=== PATIENT | male | born 1995 | race Two or more races ===

== ENCOUNTER 2017-05-19 20:33 | Inpatient (IN) | payer OTHER ==
[~2017-05-19] VITALS: Ht 180.3 cm; Wt 102.5 kg
[~2017-05-19 20:33] MED LIST: ALBUTEROL17 G1 IH; BENADRYL25 MG PO; PEPCID20 MG PO; PREDNISONE20 MG PO
[2017-05-19 21:00] LABS: HEMATOCRIT 43.2 % (38.0-50.0); MCH 29.9 PG (29.0-34.0); MCHC 34.5 G/DL (30.0-36.0); MCV 86.7 FL (86-99); MEAN PLAT.VOLUME 9.8 uM^3 (9.0-12.4); PLATELET COUNT 190 K/uL (156-360); RBC DIS.WIDTH-CV 12.3 % (11.8-14.6); RBC DIS.WIDTH-SD 39.1 % (39-53); RED BLOOD COUNT 4.98 M/uL (4.00-5.50); WHITE BLOOD COUNT 17.3 K/uL (4.1-10.2)
[2017-05-19 21:09] LABS: CHLORIDE 103 mEq/L (99-109); POTASSIUM 3.9 mEq/L (3.7-5.4); SODIUM 135 mEq/L (136-147)
[2017-05-19 21:10] LABS: GLUCOSE 129 mg/dL (70-99)
[2017-05-19 21:12] LABS: ANION GAP 8 MEQ/L (2-14)
[2017-05-19 21:14] LABS: GFR ESTIMATE (CALCULATED) > 59 mL/min/
[2017-05-19 21:15] LABS: UREA NITROGEN (BUN) 16 mg/dL (9-23)
[2017-05-19 21:54] LABS: ABS NEUTROPHIL COUNT 7.9; ATYPICAL LYMPHOCYTE 39.7 %; BAND NEUTROPHILS 3.4 % (0-8.0); BASOPHILS 0.9 %; EOSINOPHIL ABS CT 0; INSTRUMENT ABS NEUTROPHIL CT 7.4 K/uL; LYMPHOCYTES 10.3 % (15.0-45.0); SEG.NEUTROPHILS 42.2 % (46.0-76.0); SMUDGE CELLS 13.8
[2017-05-19] MEDS ORDERED: VENTOLIN HFA18 GM IH (22:23)
[2017-05-19 22:55] LABS: ADD MIUA? YES; BILIRUBIN NEGATIVE; BLOOD MODERATE; COLOR AMBER ((YELLOW)); GLUCOSE (STRIP) NEGATIVE; KETONES NEGATIVE; LEUKOCYTES NEGATIVE; NITRITE NEGATIVE; PROTEIN (STRIP) 100; SPECIFIC GRAVITY 1.034 (1.000-1.030)
[2017-05-19 23:00] LABS: BACTERIA NONE SEEN /HPF; EPITHELIAL CELLS RARE /HPF; MUCUS 2+ /LPF; RED BLOOD CELLS 0-5 /HPF (0-5); RENAL EPITHELIAL CELLS 1+ /HPF; UCUL ADDED? NO; WHITE BLOOD CELLS 0-5 /HPF (0-5)
[2017-05-20] VITALS (15 sets, daily range): BP systolic 98–148; BP diastolic 54–83
[2017-05-20 03:34] LABS: METH RESISTANT S AUREUS PCR POSITIVE (NEGATIVE)
[2017-05-20 03:39] LABS: PROBE CHECK PASS
[2017-05-20 05:11] LABS: HEMATOCRIT 38.9 % (38.0-50.0); MCH 30.1 PG (29.0-34.0); MCHC 33.9 G/DL (30.0-36.0); MCV 88.6 FL (86-99); MEAN PLAT.VOLUME 10.2 uM^3 (9.0-12.4); PLATELET COUNT 160 K/uL (156-360); RBC DIS.WIDTH-CV 12.3 % (11.8-14.6); RBC DIS.WIDTH-SD 40.1 % (39-53); RED BLOOD COUNT 4.39 M/uL (4.00-5.50); WHITE BLOOD COUNT 14.5 K/uL (4.1-10.2)
[2017-05-20 05:18] LABS: CHLORIDE 107 mEq/L (99-109); POTASSIUM 4.2 mEq/L (3.7-5.4); SODIUM 139 mEq/L (136-147)
[2017-05-20 05:21] LABS: ANION GAP 10 MEQ/L (2-14)
[2017-05-20 05:24] LABS: GFR ESTIMATE (CALCULATED) > 59 mL/min/
[2017-05-20 05:25] LABS: UREA NITROGEN (BUN) 14 mg/dL (9-23)
[2017-05-20 05:32] LABS: GLUCOSE 93 mg/dL (70-99)
[2017-05-21 03:48] VITALS: BP 126/64
[2017-05-21 09:45] VITALS: BP 133/69
[2017-05-21 13:10] VITALS: BP 132/64
[2017-05-21 17:35] VITALS: BP 134/73
[2017-05-21 19:30] VITALS: BP 140/88
[2017-05-21 23:30] VITALS: BP 129/76
[2017-05-22 05:00] VITALS: BP 138/83
[2017-05-22 07:09] VITALS: BP 127/67
[2017-05-22 09:07] LABS: HEMATOCRIT 40.6 % (38.0-50.0); MCH 30.2 PG (29.0-34.0); MCHC 34.5 G/DL (30.0-36.0); MCV 87.5 FL (86-99); MEAN PLAT.VOLUME 9.7 uM^3 (9.0-12.4); PLATELET COUNT 200 K/uL (156-360); RBC DIS.WIDTH-CV 12.5 % (11.8-14.6); RBC DIS.WIDTH-SD 40.3 % (39-53); RED BLOOD COUNT 4.64 M/uL (4.00-5.50); WHITE BLOOD COUNT 11.3 K/uL (4.1-10.2)
[2017-05-22 09:36] LABS: ANION GAP 7 MEQ/L (2-14); CHLORIDE 105 MEQ/L (99-109); GFR ESTIMATE (CALCULATED) > 59 mL/min/; GLUCOSE 113 mg/dL (70-99); SAMPLE HEMOLYSIS CHECK 0; SAMPLE ICTERIC CHECK 0; SAMPLE LIPEMIA CHECK 0; SODIUM 137 MEQ/L (136-147); UREA NITROGEN (BUN) 10 mg/dL (9-23)
[2017-05-22 11:49] VITALS: BP 129/76
[2017-05-22 15:40] VITALS: BP 119/79
[2017-05-22 19:30] VITALS: BP 127/69
[2017-05-22 23:00] VITALS: BP 116/67
[2017-05-23 05:00] VITALS: BP 129/73
[2017-05-23 07:11] VITALS: BP 133/73
[2017-05-23] MEDS ORDERED: NORCO 5/3251 TABLET PO (09:09)
[2017-05-23] MEDS ORDERED: CIPRO500 MG PO (09:09)
[2017-05-23] MEDS ORDERED: BACTRIM,SEPT1 TABLET PO (09:23)
[2017-05-23 11:00] VITALS: BP 142/73
== END 2017-05-23 13:47 | disposition home or self-care (01) | DRG 854 ==
LOC: EME 20:33 → 4EAST 23:34 → 4WEST 23:34 → EDOF 23:34 → ENRESERV 23:35 → 4WEST 05-20 02:14 → ENRESERV 05-20 14:58 → 4EAST 05-20 18:36 → ENPENDDIS 05-23 09:28 → 4EAST 05-23 13:47
PROVIDERS: Hospitalist; Internal Medicine
PROC: 0W9F0ZZ Drainage of Abdominal Wall, Open Approach (ICD-10-PCS; principal; 2017-05-23)
DX: A41.9 Sepsis, unspecified organism (principal); L03.311 Cellulitis of abdominal wall; N17.9 Acute kidney failure, unspecified; M79.3 Panniculitis, unspecified; L02.211 Cutaneous abscess of abdominal wall; E66.9 Obesity, unspecified; B95.62 Methicillin resistant Staphylococcus aureus infection as the cause of diseases classified elsewhere
CPT/HCPCS: 74177; 80048; 80202; 81003; 83605; 85025; 85027; 87040; 87070; 87075; 87077; 87147; 87186; 87205; 87641; 99281; 99285; J1650; J2250; J2543; J3370; J7030; J7050

== ENCOUNTER 2017-06-11 07:29 | Day surgery (SDC) | payer OTHER ==
[~2017-06-11] VITALS: Ht 180.3 cm; Wt 107.5 kg
[~2017-06-11 07:29] MED LIST changes: +BACTRIM,SEPT1 TABLET PO; +CIPRO500 MG PO; +NORCO 5/3251 TABLET PO; +VENTOLIN HFA18 GM IH
[2017-06-11 08:09] VITALS: BP 131/67
[2017-06-11] MEDS ORDERED: ULTRAM50 MG PO (10:27)
[2017-06-11 12:15] VITALS: BP 132/72
[2017-06-11 13:15] VITALS: BP 131/74
[2017-06-11 15:24] VITALS: BP 136/79
== END 2017-06-11 15:38 | disposition home or self-care (01) ==
LOC: SDC 07:29
DX: L02.211 Cutaneous abscess of abdominal wall (principal); L03.311 Cellulitis of abdominal wall; A49.02 Methicillin resistant Staphylococcus aureus infection, unspecified site; E66.9 Obesity, unspecified; Z68.33 Body mass index [BMI] 33.0-33.9, adult; K62.5 Hemorrhage of anus and rectum; R35.0 Frequency of micturition
CPT/HCPCS: 87641; J0690; J1100; J1170; J1885; J2250; J2405; J3010